=== PATIENT | male | born 1975 | race Caucasian/White ===

== ENCOUNTER 2020-12-06 20:26 | Emergency (ER) | payer OTHER ==
[~2020-12-06] VITALS: Ht 185.4 cm; Wt 81.6 kg
[2020-12-06 21:38] LABS: HEMOGLOBIN 13.5 gm/dl (14.0-17.5); RED BLOOD COUNT 4.31 M/UL (4.20-5.50); WHITE BLOOD COUNT 9.8 K/UL (4.5-11.0)
[2020-12-06 22:06] LABS: BUN/CREATININE RATIO 14 (0-10)
[2020-12-07] MEDS ORDERED: ASPIRIN EC81 MG PO (09:39)
[2020-12-07] MEDS ORDERED: MECLIZINE HCL25 MG PO (09:40)
[2020-12-07] MEDS ORDERED: PREDNISONE20 MG PO (09:42)
[2020-12-07] MEDS ORDERED: CETIRIZINE HCL10 MG PO (09:42)
[2020-12-07] MEDS ORDERED: FLONASE 0.05% N16 GM (09:43)
[2020-12-07] MEDS ORDERED: DEXAMETHASONE4 MG PO (09:44)
[2020-12-07] MEDS ORDERED: PROTONIX 40 MG40 M1 PO (10:48)
== END 2020-12-07 11:00 | disposition home or self-care (01) ==
LOC: ER1 20:26 → CDU 12-07 02:30
PROVIDERS: Physician Assistant
DX: R07.9 Chest pain, unspecified (principal); R55 Syncope and collapse; F17.200 Nicotine dependence, unspecified, uncomplicated; Z20.822 Contact with and (suspected) exposure to COVID-19
CPT/HCPCS: 71045; 80053; 82550; 82553; 83874; 83880; 84484; 85025; 85379; 93005; 99285; G0378; U0002

== ENCOUNTER → 2020-12-21 | Outpatient (CLI) | payer OTHER ==
[~2020-12-21] MED LIST: ASPIRIN EC81 MG PO; CETIRIZINE HCL10 MG PO; DEXAMETHASONE4 MG PO; FLONASE 0.05% N16 GM; MECLIZINE HCL25 MG PO; PREDNISONE20 MG PO; PROTONIX 40 MG40 M1 PO
== END ==
LOC: MRI 09:10
DX: R42 Dizziness and giddiness (principal)
CPT/HCPCS: 70553; A9577

== ENCOUNTER → 2021-02-02 | Outpatient (CLI) | payer OTHER | LOC: CATH 08:45 | DX: R42 Dizziness and giddiness (principal) ==

== ENCOUNTER 2021-08-30 09:13 | Emergency (ER) | payer OTHER ==
[2021-08-30 10:26] LABS: HEMOGLOBIN 15.7 gm/dl (14.0-17.5); RED BLOOD COUNT 4.87 M/UL (4.20-5.50); WHITE BLOOD COUNT 9.2 K/UL (4.5-11.0)
[2021-08-30 10:50] LABS: BUN/CREATININE RATIO 11 (0-10)
== END 2021-08-30 12:55 | disposition home or self-care (01) ==
LOC: ER1 09:13
PROVIDERS: Physician Assistant
DX: R10.32 Left lower quadrant pain (principal)
CPT/HCPCS: 80053; 81001; 83690; 85025; 99284; Q9967